=== PATIENT | male | born 2000 | race Caucasian/White ===

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

== ENCOUNTER 2022-05-20 10:37 | Emergency (ER) | payer BC, SELFPAY ==
[2022-05-20 10:39] VITALS: BP 120/74; PULSE 93; RESP 16; TEMP 36.6; O2SAT 96; BMI 24.6
--- NOTE | 2022-05-20 12:07 | EDS_ITS ---
HPI History of Present Illness Chief Complaint: Cough Detail of Chief Complaint: Cough since May 05 Informant: patient Narrative Narrative: Patient presents the emergency department with complaint of a cough since May 05. Patient apparently was seen by his primary care physician and on the of the month started on amoxicillin which she just finished 5 days ago. Patient states that he had fever for about 7 days and a sore throat. Patient states that the fevers been resolved. He continues to cough and at times bringing up some green sputum. Patient this morning with cough was bringing up some blood-tinged sputum and he states that also he had a blood clot from his nose the right side. Patient denies any chest pain. Patient tells me he had COVID in February of this year. PFSH PFS Home Medications azithromycin 250 mg tablet 250 mg PO DAILY #4 TABLETS 05/20/22 [Rx Last Taken Unknown] Allergy/AdvReac Type Severity Reaction Status Date / Time ENVIRONMENTAL Allergy Anaphylaxis Uncoded 05/20/22 10:38 Social History Smoking Status: Never smoker ROS ROS ED Review of Systems ROS Unobtainable: other Constitutional Constitutional ED: Reports lethargy; Denies chills, fever(s), sweats or weight loss Eyes Eyes: Denies blurry vision, change in vision or diplopia ENT ENT ED: Denies rhinorrhea or sore throat Cardiovascular Cardiovascular: Denies chest pain, orthopnea or racing heartbeat Respiratory/Chest Respiratory/Chest: Reports cough, sputum and other Details: Hemoptysis ; Denies dyspnea, dyspnea on exertion or orthopnea Gastrointestinal Gastrointestinal: Denies abdominal pain, diarrhea, nausea or vomiting Genitourinary Genitourinary ED: Denies dysuria, hematuria or urinary frequency Musculoskeletal Musculoskeletal: Denies arthralgias, back pain, myalgias or neck pain Integumentary Denies abscess, Abrasions or rash Neurologic Neurologic: Denies headache(s) or weakness Psychiatric Psychiatric: Denies anxiety, depression or suicidal thoughts Endocrine Endocrinology: Denies polydipsia, polyphagia or polyuria Hematologic/Lymphatic Hematologic/Lymphatic: Denies easy bleeding, easy bruising or lymphadenopathy Allergic/Immunologic Allergic/Immunologic ED: Denies mouth swelling, tongue swelling or urticaria EXAM Physical Exam Const Vital Signs: 05/20/22 10:39 05/20/22 11:29 Temperature 97.9 F Temperature Source Temporal Pulse Rate 93 Respiratory Rate 16 Respiratory Effort Non-Labored Short of Breath Blood Pressure 120/74 Blood Pressure Mean 89 Pulse Ox 96 Oxygen Delivery Method Room Air Positive well nourished and well developed General Appearance ED: well developed and NAD HEENT Reports TM's clear and moist mucous membranes normocephalic and atraumatic; Negative for trauma or tenderness Tympanic Membrane ED: Yes TM's clear Eyes PERRL and EOMs intact bilaterally General Eye ED: Negative for pale conjunctiva or scleral icterus Neck no lymphadenopathy, supple and no JVD General: Negative for tenderness Chest Wall inspection of chest normal and palpation of chest normal Chest: Negative for tenderness Resp normal respiratory effort and clear to auscultation bilaterally Effort and Inspection: Negative for respiratory distress or pain with movement Auscultation: Negative for rhonchi, wheezes or diminished lung sounds Cardio regular rate, regular rhythm, S1 normal heart sound, S2 normal heart sound and no murmurs Peripheral Pulses: pulses 2+ throughout GI normal to inspection, nondistended, normoactive bowel sounds, soft to palpation, non-tender, non-distended and no masses Back/Spine no CVA tenderness and no thoracic nor lumbar tenderness Extremity normal to inspection General Extremety ED: Negative for edema General Extremity: Negative for edema Neuro oriented x3, CN's II-XII intact bilaterally, no sensory deficits noted and gait normal Sensorium / Orientation: awake, alert, oriented to person, oriented to place and oriented to time Motor Exam: strength 5/5 throughout and strength abnormal Psych mental status grossly normal Skin no rashes or lesions noted and no wounds MDM MDM MDM Narrative Medical decision making narrative: IV line established on arrival. Blood work obtained showed a white count of 12.6 with a hemoglobin of 14 and a hematocrit of 41.5. D-dimer was normal 1.41. Chemistries were normal. 1 view chest x-ray obtained interpreted by myself as no acute disease process. At this point the etiology of the bloody sputum unclear I suspect it may be related to a nosebleed as he did have clot in his nose this morning. Patient's had no further hemoptysis while in the department. It is unclear if patient had a viral URI but given the continued cough and sputum production will cover for atypical bacteria as the antibiotic he was previously on was amoxicillin and I will cover him with Zithromax. Patient to follow-up with primary care physician in 3 to 5 days. Patient advised to return if persistent hemoptysis, shortness of breath, or condition should worsen anyway. Lab Data Attestation: I reviewed the patient's lab results. Labs: Laboratory Results - last 24 hr 05/20/22 05/20/22 05/20/22 12:26 12:26 12:26 WBC 12.6 H RBC 4.83 Hgb 14.2 Hct 41.5 MCV 85.9 MCH 29.4 MCHC 34.2 RDW Std Deviation 39.7 RDW Coeff of Maia 12.7 Plt Count 238 MPV 9.9 Immature Gran % (Auto) 0.400 Neut % (Auto) 66.8 Lymph % (Auto) 24.6 Wilkinson % (Auto) 6.1 Eos % (Auto) 1.8 Baso % (Auto) 0.3 Absolute Neuts (auto) 8.4 H Absolute Lymphs (auto) 3.10 Nucleated RBC % 0 D-Dimer Quant (PE/DVT) 0.41 Sodium 141 Potassium 3.9 Chloride 110 H Carbon Dioxide 27.0 Anion Gap 4 L BUN 11 Creatinine 0.85 Estim Creat Clear Calc 143.14 Est GFR (MDRD) Af Amer 146 Est GFR (MDRD) Non-Af 121 BUN/Creatinine Ratio 12.9 Glucose 78 Calcium 9.3 Radiography Chest X-Ray - ED: 1 View Diagnostic Testin view chest x-ray obtained interpreted by myself as no acute disease process. Official report from radiology pending. Discharge Plan Triage Chief Complaint: Cough ED Provider: Jannet Alva Dx/Rx/DC Orders Clinical Impression: Acute upper respiratory infection, Hemoptysis Instructions: ED Upper Resp Infec Abx Tx, ED Hemoptysis Prescriptions: New azithromycin [azithromycin] 250 mg tablet 250 mg PO DAILY Qty: 4 0RF Primary Care Provider: Sushil Prabhakar Referrals: Gerardo Callahan MD [Non-Staff] - 3-5 Days Disposition Disposition: Home, Self Care
[2022-05-20 12:42] LABS: Absolute Neutrophil Count 8.4 X10^3/uL (2.0-7.7); Basophil# 0.04 X10^3/uL; Basophil% 0.3 % (0-1); Eosinophil# 0.23 X10^3/uL; Eosinophils% 1.8 % (0-5); Hematocrit 41.5 % (40-54); Hemoglobin 14.2 g/dL (13.0-16.5); Lymphocyte % 24.6 % (19-41); Mean Corp Hgb Conc 34.2 g/dL (32-36); Mean Corpuscular Hgb 29.4 pg (27.0-32.0); Mean Corpuscular Volume 85.9 fL (80-94); Mean Platelet Vol. 9.9 fl (6.2-12.0); Monocyte# 0.77 X10^3/uL; Monocyte% 6.1 % (0-10); NRBC Flagged by Analyzer 0 % (0-5); Neutrophil # 8.42 X10^3/uL (2.7-7.7); Neutrophil % 66.8 % (47-70); Platelet Count 238 K/mm3 (150-450); RBC Distribution Width CV 12.7 % (11.6-14.6); RBC Distribution Width SD 39.7 fl (35.1-43.9); Red Blood Count 4.83 M/mm3 (4.6-6.2); White Blood Count 12.6 K/mm3 (4.4-11.0)
[2022-05-20 12:50] LABS: Anion Gap 4 (5-15); BUN 11 mg/dL (7-18); BUN/Creat Ratio 12.9 RATIO (10-20); Calcium,Total 9.3 mg/dL (8.5-10.1); Chloride 110 mmol/L (98-107); Creatinine, Serum 0.85 mg/dL (0.70-1.30); D-Dimer Quantitative (DVT/PE) 0.41 FEU/ug/m (0.27-0.49); EST Glomerular Filtration Rate 121 mL/min (>60); Est Glom Filt Rate - Afr Amer 146 mL/min (>60); Estimated Creatinine Clearance 143.14 ml/min; Glucose 78 mg/dL (74-106); Potassium 3.9 mmol/L (3.5-5.1); Sodium Level 141 mmol/L (136-145)
--- NOTE | 2022-05-20 13:13 | CM.ED ---
Social Work Consult: No Primary Care Physician. Referral source: Self referral due to above. This psychologist social met with patient and patient mother in room. Introduced self and psychologist social role. Patient agreeable to speak with this psychologist social and provided verbal permission for this psychologist social to speak openly with patient mother present. This psychologist social broached topic of no primary care physician for patient. Patient reports I have one, they just couldn't find it in the system. Patient reports that PCP is Sushil Prabhakar with [facility]. Patient unsure if Sushil Prabhakar is a doctor, N.P, or PA. This psychologist social able to look up provider. Sushil Prabhakar is a PA. This psychologist social able to confirm spelling of name and finding provider in the system. This psychologist social updated patient chart accordingly. Patient denies any community needs/concerns. No further services identified or requested. Mis SEGURA, LINA
--- NOTE | 2022-05-20 14:25 | RAD_ITS ---
STUDY: X-RAY CHEST REASON FOR EXAM: Male, 21 years old. Cough TECHNIQUE: Single AP portable view of the chest. COMPARISON: Comparison is made with prior study 07/03/2019. FINDINGS: Hyperinflation. The lungs are clear. There is no demonstrated pleural abnormality. Normal size heart. Normal mediastinum and buddy. Normal visualized pulmonary arteries. Normal visualized aortic arch and descending thoracic aorta. Normal visualized thoracic spine. Normal visualized ribs, clavicles, and shoulders. There is no demonstrated abnormality of the visualized soft tissue structures of the upper abdomen. RAD/Chest 1 View (Portable) IMPRESSION: Hyperinflation. The lungs are clear. Electronically Signed: Flaco Rousseau MD at 14:40 EDT ,
[2022-05-20] MEDS: Azithromycin 250 MG Tablet 500 MG PO (14:54)
== END 2022-05-20 14:59 | disposition home or self-care (01) ==
PROVIDERS: Emergency Provider Emergency Medicine; PCP Physician Assistant; Visit Provider Emergency Medicine
DX: J06.9 Acute upper respiratory infection, unspecified (principal); R04.2 Hemoptysis; Z86.16 Personal history of COVID-19
CPT/HCPCS: 71045; 80048; 85025; 85379; 99283; A4216

== ENCOUNTER 2025-05-28 08:00 | Outpatient (RCR) | payer OTHER, BC, SELFPAY ==
--- NOTE | 2025-05-23 09:19 | HP.OTEVAL_ITS ---
Patient's Visit Information Visit Information Visit Information: LEE HESTER is a 24 year old M, referred to Occupational Therapy by JAREK GOEL, with a diagnosis of bilateral crush injury. Date of Evaluation: 05/23/25 Occupational Therapist: Ivanna Barbosa, CANDIE/Aman, CHT Subjective Subjective: This 24 year old male was seen for OT alonso with dx of bilateral hand crush injury DOI 04/19/25. pt was working on a press break and his fingers got caught for a few seconds. Pt went ER. stitches and bilateral digit fx of phalanx Pt works at [employer] in [place]. pt states he is staying with his parents that live local pt states he did go to the Dr. on and the Dr told him his fx was healing well. pt is right handed. pt is currently off work until May.29. Pt states he has to lift 50-80# and uses his hands a lot. is hopeful he can return to work soon. ADLs Comments: pt reports his is IND with ADLS and IADLs ROM ROM Comments: pt demo full flexion of all bilateral digits left IF PIP -20/100 left MF PIP -10/ 90 pts left IF demo a 10* PIP ulnar deviation due to fx Strength Windows Migration Technician: right 90# left 55# Lateral Pinch: right 12# left 14# Tripod Pinch: right 14# left 6# Strength Comments: pt demo with weakness of bilateral hands more in left than right Sensation Sensation Comments: pt reports a decrease in left IF and MF lack of sensation Quick DASH-Disab of Arm,Shoulder& Hand Quick DASH Score: 45.0000 Goals Goal:: pt will demo a increase in bilateral proposal writer strength by 40# to return to work by d/c pt will demo the ability to tolerate lift of 50-80# to simulate work tasks by d/c Goal:: pt will demo understanding of scar mt by end of 2nd session Rehabilitation General Assessment: pt arrives 4 weeks and 6 days s/p from bilateral IF/MF/RF crush injury. pt demo with good ROM but due to fx demo with a decrease in strength limiting pts return to work at this time pt would benefit from skilled OT services 3x week for 4 weeks to improve his functional strength to return to work. Therapist ed. pt POC. pt demo understanding and agree to POC. Rehabilitation Potential: Good Anticipated Interventions Anticipated Interventions: Strengthening, Scar Care, Fine Motor Coord/Garry and Home Program Visit Plan Frequency: 3x /Week Duration: 4 Weeks General Plan: light PRE until pt is 6 weeks out from DOI strengthen and work sim maggi. TEXT: Thank you for the opportunity to evaluate your patient. For Medicare and Medicare HMO plans, please review the plan of care and approve it. It will need to be FAXED BACK to us at [phone] for Medicare purposes. Please let me know if there are questions or concerns regarding this plan of care. Physician Signature: Date:
== END 2025-05-28 19:00 | disposition home or self-care (01) ==
LOC: OT 08:00
PROVIDERS: PCP Physician Assistant
DX: S62.611D Displaced fracture of proximal phalanx of left index finger, subsequent encounter for fracture with routine healing (principal); S61.210D Laceration without foreign body of right index finger without damage to nail, subsequent encounter; S61.212D Laceration without foreign body of right middle finger without damage to nail, subsequent encounter; S61.214D Laceration without foreign body of right ring finger without damage to nail, subsequent encounter; S61.213D Laceration without foreign body of left middle finger without damage to nail, subsequent encounter; S62.620D Displaced fracture of middle phalanx of right index finger, subsequent encounter for fracture with routine healing
CPT/HCPCS: 97110; 97166